=== PATIENT | female | born 1935 | race Caucasian/White ===

== ENCOUNTER → 2016-10-31 | Outpatient (CLI) | payer OTHER, BC ==
[~2016-10-31] VITALS: Ht 157.5 cm; Wt 63.3 kg
[~2016-10-31] MED LIST: BENADRYL25 MG PO; FENTANYL PA50 MCG/HR TRANSDERM; FLAGYL500 MG PO; FLONASE 0.05%50 MCG NASAL; HYDROCHLOROTHIA25 M2 PO; LEVOTHYROXINE 0.1 MG PO; NORCO 10-325 T1 EACH PO; NORFLEX100 MG PO; NORTRIPTYLINE H25 M3 PO; OMEPRAZOLE40 MG PO; PLAVIX 75 MG TA75 MG PO; PREVACID30 MG PO; RETIN-A20 GM TP; TENORMIN25 MG PO; ZPAK PO
--- NOTE | ~2016-10-31 | HPC ---
[facility] [address] [place] [address] PAIN MANAGEMENT CONSULTATION Name: MARLEN ROOT Room #: REG CRISTINA Pierre#: [id number] Admission: 10/31/16 Attend Phys: Lencho Rowan DO Discharge: Date of : 37 Report #: [id number] THIS REPORT FOR: //name// CC: Darryl Rowan The patient is a pleasant 81-year-old female, she was seen about a year and a half ago in March 2015, for myofascial pain. Trigger point injections afforded significant relief, 80-90% for quite some time. She notes only recently pain has begun to recur in the upper mid back and little bit in the left low back. She denies any changes, otherwise. She notes pain is in the back, exacerbated with standing, walking, and bending. Gets some relief with relaxation. She takes Tylenol for pain. PHYSICAL EXAMINATION: Shows a 81-year-old female, BMI and vital signs are noted on the chart, they are within normal limits. Rises from chair with some assistance. Gait is modestly antalgic. She has moderate kyphosis. She does have a history of osteoporosis. She is tender in the thoracic paravertebral muscles bilateral and a little bit in the overlying latissimus dorsi bilateral, significant muscle spasm noted also in the left lower lumbar paravertebral muscles. Upper and lower extremity strength is symmetric. Straight leg raise is negative. ASSESSMENT: Myofascial pain, thoracolumbar spondylosis in the patient with component of osteoporosis and myofascial pain. RECOMMENDATIONS: Discussion with the patient today about therapeutic options. Initially, we will simply repeat trigger point injections that have been significantly helpful a year and a half ago. I will follow her up in 2-3 weeks for reevaluation. If symptoms recur, we can consider repeat trigger point injections and initiation of a selective serotonin and norepinephrine reuptake inhabiting agent (Cymbalta?). Presently; however, we can simply do trigger point injections and keep the patient functional that would probably be in her best interest. PROCEDURE: Trigger point injections times 6. PROCEDURE NOTE: After written informed consent was obtained, the patient was placed in prone position. Trigger points were identified in the bilateral thoracic paravertebral muscles, bilaterally latissimus dorsi and 2 muscle groups in the left low back, left lumbar paravertebral muscle, and inferior latissimus dorsi. The area was cleansed with alcohol. Using a 25-gauge needle, 60 mg of triamcinolone plus 10 mL of 0.5% preservative-free bupivacaine and 5 mL of 1% preservative-free Xylocaine with 1:200,000 epi was distributed equally among the 6 discrete trigger points. Needle was removed, the area was cleansed, Band-Aids [address] [address] PAIN MANAGEMENT CONSULTATION Name: MARLEN ROOT Room #: REG CRISTINA Jay#: [id number] Admission: 10/31/16 Attend Phys: Lencho Rowan DO Discharge: Date of : 37 Report #: [id number]. The patient was monitored for an appropriate period of time, discharged in good and stable condition. <ELECTRONICALLY SIGNED> By: Lencho Rowan DO 11/04/16 0811 1536 2104 Lencho Rowan DO /nt
[2016-10-31 13:48] VITALS: BP 130/80
== END ==
LOC: PAIN 07:08
DX: M47.895 Other spondylosis, thoracolumbar region (principal); M81.0 Age-related osteoporosis without current pathological fracture; M40.209 Unspecified kyphosis, site unspecified; I10 Essential (primary) hypertension

== ENCOUNTER 2021-03-20 14:54 | Inpatient (IN) | payer OTHER, BC ==
[~2021-03-20] VITALS: Ht 157.5 cm; Wt 53.2 kg
[2021-03-20 14:56] VITALS: BP 105/69
[2021-03-20 15:27] LABS: BASOPHILS 0.8 % (0.0-2.0); EOSINOPHILS 1.3 % (0.0-3.0); HEMOGLOBIN 16.6 gm/dL (12.0-15.0); LYMPHOCYTES 19.8 % (24.0-44.0); MCH 34.2 pg (26.0-34.0); MCHC 33.8 g/dL (28.0-37.0); MCV 101.1 fL (80.0-100.0); MONOCYTES 8.9 % (1.0-8.0); PLATELET COUNT 380 thou/uL (150-400); POLYS 69.2 % (36.0-66.0); RBC 4.85 mil/uL (4.20-5.00); RDW 13.4 % (10.5-14.5); WBC 10.1 thou/uL (4.0-11.0)
[2021-03-20 16:10] LABS: ANION GAP 16 mmol/L (7-16); BUN 28 mg/dL (7-18); CALCIUM 10.4 mg/dL (8.5-10.1); CHLORIDE 97 mmol/L (98-107); CO2 24 mmol/L (21-32); CREATININE 1.2 mg/dL (0.6-1.0); DIRECT BILIRUBIN < 0.1 mg/dL (<0.1-0.2); GLUCOSE 131 mg/dL (74-106); LIPASE 68 U/L (73-393); SGOT 30 U/L (15-37); SGPT 35 U/L (14-59); SODIUM 137 mmol/L (136-145); TOTAL BILIRUBIN 0.4 mg/dL (0.2-1.0); TOTAL PROTEIN 7.9 g/dL (6.4-8.2); TROPONIN-I <0.06 ng/mL (<0.06)
[2021-03-20 16:12] LABS: POTASSIUM 2.9 mmol/L (3.5-5.1)
--- NOTE | 2021-03-20 16:40 | NUR ---
ATTEMPTTED TO STRAIGHT CATH PT AT THIS TIME. NO URINE OUTPUT. PT HAS POOR SKIN TURGOR AND HAS BEEN VOMITING FOR THE PAST FEW DAYS. ED PROVIDER NOTIFIED. WILL ATTEMPT AGAIN AFTER MORE FLUIDS.
--- NOTE | 2021-03-20 17:43 | NUR ---
HOSPITALIST AT BEDSIDE AT THIS TIME
[2021-03-20 18:39] VITALS: BP 123/67
[2021-03-20 19:48] VITALS: BP 157/84
[2021-03-21 00:08] VITALS: BP 125/78
[2021-03-21] MEDS ORDERED: NEURONTIN100 MG PO (02:54)
[2021-03-21] MEDS ORDERED: TYLENOL ARTHRI650 MG PO (02:58)
[2021-03-21] MEDS ORDERED: PROLIA60 MG/1 ML SUBQ (03:06)
[2021-03-21] MEDS ORDERED: TORSEMIDE10 MG PO (03:20)
[2021-03-21] MEDS ORDERED: TRAMADOL 50 MG50 MG PO (03:24)
[2021-03-21 03:53] VITALS: BP 102/61
--- NOTE | 2021-03-21 04:39 | NUR ---
PT ADMITTED TO ROOM 201 FROM ER WITH SON AT BEDSIDE, C/O BACK PAIN RECEIVED ORDER FOR NORCO PT STATED MUCH RELIEF AND SHE WAS ABLE TO RELAX, VSS, k+ & MG+ REPLACED, FLUIDS INFUSING, EXTERNAL CATHETER PLACED AFTER PT WAS INCON'T, PT REFUSED LAB THIS AM AND STATED SHE JUST WANTED TO BE LEFT ALONE TO SLEEP AND AGREED LAB COULD COME BACK LATER, REPOSITIONED SELF IN BED, WILL CON'T TO MONITOR PER PPOC.
[2021-03-21 07:15] VITALS: BP 120/74
[2021-03-21 09:24] LABS: HEMATOCRIT 40.8 % (37.0-47.0); MCH 34.8 pg (26.0-34.0); MCHC 34.5 g/dL (28.0-37.0); MCV 100.9 fL (80.0-100.0); RBC 4.04 mil/uL (4.20-5.00); WBC 5.7 thou/uL (4.0-11.0)
[2021-03-21 09:27] LABS: HEMOGLOBIN 14.1 gm/dL (12.0-15.0)
[2021-03-21 09:39] LABS: ALBUMIN 3.2 g/dL (3.4-5.0); CALCIUM 9.4 mg/dL (8.5-10.1); CREATININE 0.8 mg/dL (0.6-1.0); DIRECT BILIRUBIN 0.1 mg/dL (<0.1-0.2); TOTAL BILIRUBIN 0.5 mg/dL (0.2-1.0); TOTAL PROTEIN 6.4 g/dL (6.4-8.2)
[2021-03-21 09:44] LABS: POTASSIUM 4.2 mmol/L (3.5-5.1)
[2021-03-21 10:06] LABS: FOLIC ACID 15.8 ng/mL (8.6-58.9)
--- NOTE | 2021-03-21 11:36 | EKG ---
[address] [place] [address] ELECTROCARDIOGRAM REPORT Name: MARLEN ROOT Room #: 201-P ADM IN M.R.#: [id number] Admission: 03/20/21 Attend Phys: Beck Nguyen MD Discharge: Date of : 37 Report #: [id number] [facility] ED Test Date: 2021-03-20 Test Time: 15:19:53 Pat Name: MARLEN ROOT Department: Room: 201 Gender: F Station Baggage Porter: MARICHUY : 1935 Requested By: Tor Baig Order Number: [id number] MD: Flavio Matthew Measurements Intervals [place] Rate: 94 P: 25 NE: 172 QRS: -58 QRSD: 132 T: 92 QT: 369 QTc: 462 Interpretive Statements Sinus rhythm Right bundle branch block LVH with IVCD and secondary repol abnrm Compared to ECG 06/24/2015 10:27:33 Intraventricular conduction delay now present Early repolarization now present Left-axis deviation no longer present Electronically Signed On 03-21-2021 11:36:06 CDT by Flavio Matthew [email or web address] <ELECTRONICALLY SIGNED> By: Flavio Matthew MD 03/21/21 1136 1519 1519 Flavio Matthew MD /EPI
[2021-03-21 15:30] VITALS: BP 126/62
--- NOTE | 2021-03-21 15:31 | NUR ---
PT ALERT AND ORIENTED TIMES FOUR. VSS. IVF INFUSING PER ORDER. SR ON TELE. PT C/O BACK PAIN PRN PAIN MEDICATIONS GIVEN WITH GOOD RELEIF. PT TOLERATES CLEAR LIQUID DIET AND MEDS. PT SON AT BEDSIDE. WILL CONTINUE TO MONITOR.
[2021-03-21 19:56] VITALS: BP 124/72
[2021-03-21 20:24] LABS: HEMATOCRIT 38.3 % (37.0-47.0); HEMOGLOBIN 13.1 gm/dL (12.0-15.0)
[2021-03-22 04:11] LABS: ABSOLUTE NEUTROPHILS 3.4 thou/uL (1.4-8.2); BASOPHILS 0.6 % (0.0-2.0); EOSINOPHILS 3.4 % (0.0-3.0); HEMATOCRIT 39.4 % (37.0-47.0); HEMOGLOBIN 13.4 gm/dL (12.0-15.0); LYMPHOCYTES 30.7 % (24.0-44.0); MCH 34.5 pg (26.0-34.0); MCHC 34.1 g/dL (28.0-37.0); PLATELET COUNT 248 thou/uL (150-400); POLYS 56.3 % (36.0-66.0); RDW 13.3 % (10.5-14.5)
[2021-03-22 04:16] LABS: ALBUMIN 2.9 g/dL (3.4-5.0); CALCIUM 9.1 mg/dL (8.5-10.1); CREATININE 0.6 mg/dL (0.6-1.0); MAGNESIUM 1.4 mg/dL (1.8-2.4); PHOSPHORUS 2.3 mg/dL (2.5-4.9); POTASSIUM 3.4 mmol/L (3.5-5.1); TOTAL BILIRUBIN 0.6 mg/dL (0.2-1.0); TOTAL PROTEIN 6.1 g/dL (6.4-8.2)
[2021-03-22 04:44] VITALS: BP 158/91
[2021-03-22 07:10] VITALS: BP 133/78
[2021-03-22 15:50] VITALS: BP 116/77
--- NOTE | 2021-03-22 16:42 | NUR ---
ASSESSMENT CHARTED - MEDS PER NOV - NO CO'S OF NAUSEA - RAYMOND FULL LIQUID DIET POST EGD THIS AFTERNOON. GIVEN HYDROCODONE X 1 FOR CO'S OF BACK PAIN WITH GOOD RELIEF. PT AMBULATING WITH THE USE OF A WALKER AND GAIT BELT SLOW TO START BUT DOES WELL ONCE MOVING. SON INTO SEE PATIENT TODAY - NO CO'S AT THE PRESENT TIME.
[2021-03-22 19:46] VITALS: BP 107/62
[2021-03-23 04:00] VITALS: BP 106/65
--- NOTE | 2021-03-23 05:49 | NUR ---
PT RESTING QUIETLY IN ROOM THRU THE NOC, ASSESSMENT CHARTED, PAIN MED GIVEN FOR C/O BACK PAIN, VSS, UP WITH GB,WALKER, AND ASSIST X1, WILL CON'T TO MONITOR PER PPOC.
[2021-03-23 06:11] LABS: ABSOLUTE NEUTROPHILS 3.6 thou/uL (1.4-8.2); BASOPHILS 0.6 % (0.0-2.0); EOSINOPHILS 3.6 % (0.0-3.0); HEMATOCRIT 42.6 % (37.0-47.0); HEMOGLOBIN 14.4 gm/dL (12.0-15.0); LYMPHOCYTES 23.4 % (24.0-44.0); MCH 34.5 pg (26.0-34.0); MCHC 33.8 g/dL (28.0-37.0); MCV 102.1 fL (80.0-100.0); MONOCYTES 10.6 % (1.0-8.0); PLATELET COUNT 233 thou/uL (150-400); POLYS 61.8 % (36.0-66.0); RBC 4.17 mil/uL (4.20-5.00); RDW 13.5 % (10.5-14.5); WBC 5.8 thou/uL (4.0-11.0)
[2021-03-23 06:35] LABS: CALCIUM 9.3 mg/dL (8.5-10.1); CREATININE 0.6 mg/dL (0.6-1.0); MAGNESIUM 1.6 mg/dL (1.8-2.4)
[2021-03-23 09:16] VITALS: BP 137/70
[2021-03-23 12:21] VITALS: BP 94/54
--- NOTE | 2021-03-23 13:26 | NUR ---
Assessment completed w/ pt and son at bedside Pt A&Ox4 NOK/DPOA: Son Param(Angus) [phone] Insurance: [place] & [place] PCP: Darryl Espinal MD Lives alone in [facility]. Living quarters on 1 lvl w/ elevator if needed and no additonal steps to enter building or apt home. ADLs: Independent - facility preps meals DME: [employer] No prior Hx w/ HH/SNF/LTACH/REHAB/HOSPICE/DIALYSIS Pt's family provides additional support at home Pt may need assistance w/ transportation upon D/C as family will be out of town from -Mon this week. SW discussed HH reccomendation. Pt and family are agreeable to HH w/ therapy and nursing assistance. Pt's son Angus inquired about HH 3-5 times a week. SHANIA educated pt and Angus of length of time and scheduling is based on pt need and agency staffing. SW to send referral on this day to Jose. D/ plan: Home w/ HH
[2021-03-23 14:46] VITALS: BP 94/54
--- NOTE | 2021-03-23 14:47 | NUR ---
Per Jose Liasmithon, pt has been accepted for services upon D/C
[2021-03-23 16:17] VITALS: BP 96/52
--- NOTE | 2021-03-23 17:00 | NUR ---
ASSESSMENT CHARTED - MEDS PER NOV - GIVEN HYDROCODONE FOR CO'S OF BACK PAIN WITH MOD RELIEF. RAYMOND DIET AND FLUIDS NO CO'S OF NAUSEA. PT NOW ON REG DIET - EATING WELL AND REQUESTED SNACK THIS AFTERNOON. UP WITH THE USE OF WALKER AND GAIT BELT - WORKED WITH PHYS THERAPY TODAY AND OCC THERAPY. NO CO'S AT THE PRESENT TIME. APPEARS TO BE RESTING COMFORTABLY.
[2021-03-23 20:24] VITALS: BP 89/50
--- NOTE | 2021-03-24 03:26 | NUR ---
ASSESSMENTS CHARTED, MEDS CHARTED GIVEN. PATIENT RESTING IN BED DURING SHIFT. C/O PAIN IN LOWER BACK. PER CT, NO LUMBAR FRACTURES, AN AGE INDETERMINENT T12 FRACTURE EVIDENT. PATIENT RECEIVING NORCO FOR PAIN GIVEN. SINUS STEPHANIE, SINUS RHYTHM WITH BBB ON TELEMETRY, ON ROOM AIR, LUNGS ARE CLEAR. PATIENT IS UP WITH GAIT BELT AND ROLLER WALKER TO THE BATHROOM. FALL PRECAUTIONS IN PLACE DURING SHIFT.
[2021-03-24 06:00] VITALS: BP 92/43
[2021-03-24 08:16] VITALS: BP 116/73
--- NOTE | 2021-03-24 08:33 | NUR ---
PT IS AXOX4, YUHAAVIATAM. TRANSFERS WITH WALKER AND GAIT BELT. TAKEN DOWN TO MRI THIS AM. FORM FILLED OUT AND IN CHART.
--- NOTE | 2021-03-24 15:10 | NUR ---
Patient to discharge home with care. Jose rhoades met with patient and son at bedside. Liason rec orders. Patient needs transport home. Arrnaged van via [facility] for [phone]. Verified adress, updated son and patient.
[2021-03-24 16:08] VITALS: BP 94/54
--- NOTE | 2021-03-24 17:03 | NUR ---
RECEIVED THE PATIENT ON BED, CONSCIOUS AND ORIENTED.ON ROOM AIR BREATHING SPONTANEOUSLY.NOT IN DISTRESS.DISCHARGE PACKET GIVEN AND EVERYTHING WAS EXPLAINED TO THE PATIENT'S SON.DISCHARGED PATIENT ON STABLE CONDTION.
--- NOTE | 2021-03-24 17:07 | PATH ---
[facility] [address] [address] PATHOLOGY RPT PROCEDURE Name: IVETTMARLEN Room #: 201-P [facility] IN M.R.#: [id number] Admission: 03/20/21 Date of : 37 Discharge: Report #: [id number] Path Case #: [id number] LCA Accession Number: [id number] . 01 Material submitted: . stomach - BIOPSY ANTRUM . 01 Clinical history: . DEHYDRATION, N/V, WEAKNESS, HYPOKALEMIA EGD . 02 Diagnosis: Gastric mucosa, antrum to rule out H. pylori, endoscopic biopsy: - Moderate reactive gastropathy. - Congested vessels within lamina propria underneath the surface epithelium. - Negative for intestinal metaplasia or atrophy. - Negative for Helicobacter pylori (properly controlled immunohistochemical stain performed). (IUV:cheyanne; 03/24/2021) MBR 03/24/2021 1259 Local . 02 Electronically signed: . Elis Najera MD, Pathologist NPI- [id number] . 01 Gross description: . The specimen is received in formalin, labeled "Marlen Root, biopsy antrum". Received are two segments of pale aviles tissue measuring 0.4 and 0.5 cm in maximum dimensions. The specimen is submitted entirely in cassette A1. (CAA; 03/23/2021) QAC/QAC 03/23/2021 1632 Local . 02 Pathologist provided ICD-10: K31.9 . 02 CPT . 887170, N65770 Specimen Comment: A courtesy copy of this report has been sent to [phone] Specimen Comment: [phone], Specimen Comment: Report sent to ,DR JOHN / DR IZAGUIRRE Performed at: [address] [id number] MD Jonah Flowers MD Phone: [phone] Performed at: [address] [address] PATHOLOGY RPT PROCEDURE Name: MARLEN ROOT Room #: 201-P [facility] IN M.R.#: [id number] Admission: 03/20/21 Date of : 37 Discharge: Report #: [id number] Path Case #: [id number] [address] [id number] MD Elis Najera MD Phone: [phone]
== END 2021-03-24 16:45 | disposition home health service (06) | DRG 380 ==
LOC: ER 14:54 → 2N 18:02 → EROBS 18:02 → 2N 19:37
PROVIDERS: Internal Medicine; Nurse Practitioner; ADMIT Hospitalist; ATTEND Hospitalist
PROC: 0DB78ZX Excision of Stomach, Pylorus, Via Natural or Artificial Opening Endoscopic, Diagnostic (ICD-10-PCS; principal; 2021-03-22)
DX: K22.10 Ulcer of esophagus without bleeding (principal); N17.0 Acute kidney failure with tubular necrosis; M48.54XA Collapsed vertebra, not elsewhere classified, thoracic region, initial encounter for fracture; K56.1 Intussusception; E86.0 Dehydration; K29.70 Gastritis, unspecified, without bleeding; K92.0 Hematemesis; E87.6 Hypokalemia; E03.9 Hypothyroidism, unspecified; G62.9 Polyneuropathy, unspecified; K44.9 Diaphragmatic hernia without obstruction or gangrene; R53.81 Other malaise; K21.9 Gastro-esophageal reflux disease without esophagitis; E83.42 Hypomagnesemia; E83.39 Other disorders of phosphorus metabolism; M81.0 Age-related osteoporosis without current pathological fracture; D53.9 Nutritional anemia, unspecified; Z90.710 Acquired absence of both cervix and uterus; Z98.49 Cataract extraction status, unspecified eye; Z86.73 Personal history of transient ischemic attack (TIA), and cerebral infarction without residual deficits; Z88.1 Allergy status to other antibiotic agents; Z88.8 Allergy status to other drugs, medicaments and biological substances; Z90.49 Acquired absence of other specified parts of digestive tract; Z90.3 Acquired absence of stomach [part of]; Z80.0 Family history of malignant neoplasm of digestive organs
CPT/HCPCS: 10081; 10797; 62110; 62900; 70005

== ENCOUNTER → 2021-03-31 | Outpatient (CLI) | payer OTHER, BC ==
[~2021-03-31] VITALS: Ht 157.5 cm; Wt 47.6 kg
[~2021-03-31] MED LIST changes: +HYDROCODONE-AP1 EA11 PO; +NEURONTIN100 MG PO; +PROLIA60 MG/1 ML SUBQ; +TORSEMIDE10 MG PO; +TRAMADOL 50 MG50 MG PO; +TYLENOL ARTHRI650 MG PO
[2021-03-31 10:49] VITALS: BP 146/67
--- NOTE | 2021-03-31 11:07 | NUR ---
Pain Clinic Assessment: 1. History of Osteoarthritis: SPINE History of Rheumatoid Arthritis: Not Applicable 2. Height: 5 ft. 2 in. 157.5 cm. Weight: 105.0 lb. oz. 47.628 kg. Patient's BMI: 19.2 3. Vital Signs: BP: 146/67 Pulse: 67 Resp: 14 Temp: 02 Sat: 100 ECG Mon: 4. Pain Intensity: 8 5. Fall Risk: Dizziness: N Needs help standing or walking: Y Fallen in the last 3 months: N Fall risk comments: 6. Patient on Blood Thinner: None 7. History of Hypertension: N 8. Opioid Therapy greater than 6 weeks: Y Opiate Contract Signed: 9. Risk Assessment Tool Provided: LOW 10. Functional Assessment Tool: 11. Recreational Drug Use: Never Drug Type: Tobacco Use: Never Smoker Tobacco Type: Amount or Packs/day: How Many Years: Alcohol Use: No Frequency: Quant:
== END ==
LOC: PAIN
PROVIDERS: ATTEND Anesthesiology Pain Medicine
DX: M48.54XA Collapsed vertebra, not elsewhere classified, thoracic region, initial encounter for fracture (principal); Z79.899 Other long term (current) drug therapy; Z79.891 Long term (current) use of opiate analgesic; Z88.1 Allergy status to other antibiotic agents; Z88.6 Allergy status to analgesic agent; Z88.8 Allergy status to other drugs, medicaments and biological substances

== ENCOUNTER 2021-04-22 14:55 | Emergency (ER) | payer OTHER, BC ==
[~2021-04-22] VITALS: Ht 157.5 cm; Wt 56.7 kg
[~2021-04-22 14:55] MED LIST changes: +PERCOCET 5-3251 EACH PO
[2021-04-22] MEDS ORDERED: PERCOCET 5-3251 EACH PO (18:37)
[2021-04-22 19:20] VITALS: BP 140/94
[2021-04-28] MEDS ORDERED: PERCOCET 5-3251 EACH PO (09:52)
[2021-04-28] MEDS ORDERED: OXYCONTIN10 M1 PO ×2 (09:52→09:58)
[2021-04-28] MEDS ORDERED: XTAMPZA ER9 MG PO (12:49)
== END 2021-04-22 19:24 | disposition home or self-care (01) ==
LOC: ER 14:55
DX: S32.020A Wedge compression fracture of second lumbar vertebra, initial encounter for closed fracture (principal); S22.080A Wedge compression fracture of T11-T12 vertebra, initial encounter for closed fracture; Z90.49 Acquired absence of other specified parts of digestive tract; Z79.899 Other long term (current) drug therapy; Z88.1 Allergy status to other antibiotic agents; Z88.0 Allergy status to penicillin; W19.XXXA Unspecified fall, initial encounter; Y93.89 Activity, other specified; Y92.89 Other specified places as the place of occurrence of the external cause; Y99.8 Other external cause status

== ENCOUNTER → 2021-04-28 | Outpatient (CLI) | payer OTHER, BC ==
[~2021-04-28] VITALS: Ht 157.5 cm; Wt 49.9 kg
[~2021-04-28] MED LIST changes: +OXYCONTIN10 M1 PO; +XTAMPZA ER9 MG PO
[2021-04-28 09:09] VITALS: BP 104/69
--- NOTE | 2021-04-28 09:28 | NUR ---
Pain Clinic Assessment: 1. History of Osteoarthritis: SPINE History of Rheumatoid Arthritis: Not Applicable 2. Height: 5 ft. 2 in. 157.5 cm. Weight: 110.0 lb. oz. 49.896 kg. Patient's BMI: 20.1 3. Vital Signs: BP: 104/69 Pulse: 75 Resp: 14 Temp: 02 Sat: 98 ECG Mon: 4. Pain Intensity: 10 5. Fall Risk: Dizziness: N Needs help standing or walking: Y Fallen in the last 3 months: Y Fall risk comments: 6. Patient on Blood Thinner: None 7. History of Hypertension: N 8. Opioid Therapy greater than 6 weeks: Y Opiate Contract Signed: 9. Risk Assessment Tool Provided: LOW-0 10. Functional Assessment Tool: 11. Recreational Drug Use: Never Drug Type: Tobacco Use: Never Smoker Tobacco Type: Amount or Packs/day: How Many Years: Alcohol Use: No Frequency: Quant:
== END ==
LOC: PAIN 06:53
PROVIDERS: ATTEND Anesthesiology Pain Medicine
DX: R07.89 Other chest pain (principal); I10 Essential (primary) hypertension; M19.011 Primary osteoarthritis, right shoulder; M19.012 Primary osteoarthritis, left shoulder; M47.814 Spondylosis without myelopathy or radiculopathy, thoracic region; I49.9 Cardiac arrhythmia, unspecified; E78.00 Pure hypercholesterolemia, unspecified; R73.9 Hyperglycemia, unspecified; F10.10 Alcohol abuse, uncomplicated; Z79.899 Other long term (current) drug therapy

== ENCOUNTER 2021-05-13 15:20 | Inpatient (IN) | payer OTHER, BC ==
[~2021-05-13] VITALS: Ht 157.5 cm; Wt 44.9 kg
--- NOTE | ~2021-05-13 | EMS ---
[facility] [address] [email or web address] [address] EMS Patient Care Report Name: MARLEN ROOT Room #: REG KADE Jay#: [id number] Admission: 05/13/21 Attend Phys: Discharge: Date of : 37 Report #: [id number] THIS REPORT FOR: //name// Report Transmitted: 05/13/2021 16:07 EMS Care Summary [facility] MED-ACT Incident [id number] @ 05/13/2021 14:26 Incident Location [address] [place] [address] Patient MARLEN ROOT Female, 86 Years 1935 Patient Address [address] [place] [address] Patient History Dementia,Hypertension (HTN),Hypothyroidism,Back Pain (Chronic), Patient Allergies No known allergies, Patient Medications Atenolol, Gabapentin, Torsemide, Oxycodone, Levothyroxine, Chief Complaint Low back pain Disposition Transported No Lights/[place] Reason Falls Transported To [facility] Narrative Patient reports that she was sitting on the lid of her toilet seat trying to put her slippers on when she slid off the toilet onto the floor landing on her [facility] [address] [email or web address] [address] EMS Patient Care Report Name: MARLEN ROOT Room #: NEREIDA Jay#: [id number] Admission: 05/13/21 Attend Phys: Discharge: Date of : 37 Report #: [id number] left side. Patient c/o left hip pain and low back pain. Patient stated she has therapy for chronic low back pain but her pain has increased since sliding off of the toilet this afternoon. Patient denied hitting her head and denied LOC. Patient denied headache/head pain, dizziness, vision changes, neck pain and numbness/tingling to her extremities, chest pain/pressure/discomfort, difficulty breathing, and nausea/vomiting. Patient stated she pressed her medical alert button immediately. E32 reports that they were initially dispatched for a "Lift Assist" but called for a MICU when they found the patient with pain in her back and left hip. Patient initially rated her pain 10/10 but stated her back pain had decreased to 4/10 after receiving 75mcg Fentanyl IVP. Patient stated her left hip pain had resolved once she was lying in a supine position on the stretcher. Patient's [id number] requested ambulance transport to [facility] ER for evaluation. Found this 86 y/o female patient lying on her left side on the floor in the bathroom of her apartment being attended to by E32. Patient was a/o x 2. GCS 14 (normal for patient per family). Patient's respiration were regular and non labored. Patient's skin was warm, dry and had good color. Patient's radial pulse was strong and regular. No visible signs of trauma noted to the patient's head. No crepitus, deformities or tenderness were palpated to the patient's head or neck. NATALIE. No slurred speech or facial droop noted. No obvious deformities or crepitus were palpated to the patient's back. Noted grimace on patient's face when she tried to move herself. M1143 encouraged the patient to try not to move herself. Due to position of the patient, M1143 as initially unable to determine presence of shortening or rotation of the patient's left leg. A 20 ga IV saline lock was established in the patient's right thumb/wrist. Patient was given an initial dose of 50 mcg Fentanyl IVP for pain management. After several minutes and when the patient appeared to be more relaxed, the patient was moved from the floor via scoop stretcher and placed in a supine position on the stretcher. Scoop stretcher was removed. No obvious shortening or rotation noted to the patient's left leg and patient indicated that she was no longer having any pain or discomfort in her left leg. Patient was secured with seat belts and moved to the MICU. Sinus Rhythm on the monitor. Monitored the patient's vitals and ECG. Patient reports that her back pain had decreased to 6/10. Patient was given 25mcg of Fentanyl IVP for continued pain management. Upon arrival at [facility] ER, the patient rated her low back pain a 3 or 4/10. Upon arrival at [facility] ER, the patient was taken to ER #10 and moved via draw sheet to the ER bed by Arsenio and ER staff. Report and paperwork TOT TEJA Bell, at the patient's bedside. Initial Vitals @PTAP: 68,R: 18,BP: 90/54,Pain: 10/10,GCS: 14,SpO2: 96,Revised Trauma: 12, @15:15P: 63,R: 18,BP: 92/62,Pain: 6/10,GCS: 14,SpO2: 98,Revised Trauma: 12, @15:07P: 66,R: 18,BP: 97/60,Pain: 6/10,GCS: 14,SpO2: 98,Revised Trauma: 12, [facility] [address] [place] [address] EMS Patient Care Report Name: MARLEN ROOT Room #: NEREIDA Jay#: [id number] Admission: 05/13/21 Attend Phys: Discharge: Date of : 37 Report #: [id number] @15:08P: 65,R: 18,Pain: 6/10,GCS: 14,SpO2: 99,[place] Suspected: false @14:45P: 72,R: 18,Pain: 10/10,GCS: 14,Temp: 98.9F,SpO2: 97, Impression Injury of Lower Back Procedures @PTASaline Lock 0cc (20 ga) Site: Hand-LeftResponse: UnchangedFailed@15:16Fentanyl - 25 Micrograms (mcg) - Intravenous (IV)Response: Improved@15:00Fentanyl - 50 Micrograms (mcg) - Intravenous (IV)Response: Improved@14:56Saline Lock 10cc (20 ga) Site: Hand-RightResponse: ImprovedSucceeded@14:50Saline Lock 0cc (20 ga) Site: Forearm-LeftResponse: UnchangedFailed@PTASurgical Mask on PatientResponse: Unchanged@14:45ALS AssessmentResponse: ImprovedSucceeded 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,Saline Lock 0cc 20 ga Site: Hand-Left,Response: UnchangedFailed, GAS METER REPAIR SUPERVISOR,Surgical Mask on Patient,Response: Unchanged GAS METER REPAIR SUPERVISOR,BP: 90/54 M,PULSE: 68,RR: 18 R,SPO2: 96 Ox,ETCO2: ,BG: ,PAIN: 10,GCS: 14, 14:17,Call Received 14:17,Psap Call 14:26,Dispatched 14:26,En Route 14:39,On Scene 14:43,At Patient 14:45,ALS Assessment,Response: ImprovedSucceeded, 14:45,BP: / M,PULSE: 72,RR: 18 R,SPO2: 97 Ox,ETCO2: ,BG: ,PAIN: 10,GCS: 14, 14:50,Saline Lock 0cc 20 ga Site: Forearm-Left,Response: UnchangedFailed, 14:56,Saline Lock 10cc 20 ga Site: Hand-Right,Response: ImprovedSucceeded, 15:00,Fentanyl - 50 Micrograms (mcg) - Intravenous (IV),Response: Improved 15:07,BP: 97/60 M,PULSE: 66,RR: 18 R,SPO2: 98 Ox,ETCO2: ,BG: ,PAIN: 6,GCS: 14, 15:08,BP: / M,PULSE: 65,RR: 18 R,SPO2: 99 Ox,ETCO2: ,BG: ,PAIN: 6,GCS: 14, 15:08,Depart Scene 15:15,BP: 92/62 M,PULSE: 63,RR: 18 R,SPO2: 98 Ox,ETCO2: ,BG: ,PAIN: 6,GCS: 14, 15:16,Fentanyl - 25 Micrograms (mcg) - Intravenous (IV),Response: Improved 15:18,At Destination 15:36,Call Closed Disclaimer v1.1 Copyright 2020 [employer] This EMS Care Summary contains data elements from the applicable legal record (which may be displayed differently). It is designed to provide pertinent information for the following purposes: continuity of care, clinical quality, and state data reporting. The complete legal record is available to ED staff and administrators of the receiving hospital in [employer]'s Patient Tracker. All data [address] [address] EMS Patient Care Report Name: MARLEN ROOT Room #: REG M.R.#: [id number] Admission: 05/13/21 Attend Phys: Discharge: Date of : 37 Report #: [id number] is provided "as is."
[2021-05-13 15:21] VITALS: BP 93/56
[2021-05-13 17:01] LABS: BASOPHILS 0.6 % (0.0-2.0); EOSINOPHILS 3.4 % (0.0-3.0); HEMATOCRIT 38.1 % (37.0-47.0); LYMPHOCYTES 14.6 % (24.0-44.0); MCH 34.5 pg (26.0-34.0); MCV 101.5 fL (80.0-100.0); PLATELET COUNT 287 thou/uL (150-400); POLYS 71.4 % (36.0-66.0); RBC 3.76 mil/uL (4.20-5.00); RDW 13.6 % (10.5-14.5); WBC 8.4 thou/uL (4.0-11.0)
[2021-05-13 17:13] LABS: ALBUMIN 2.9 g/dL (3.4-5.0); CREATININE 1.2 mg/dL (0.6-1.0); TOTAL BILIRUBIN 0.5 mg/dL (0.2-1.0); TOTAL PROTEIN 6.3 g/dL (6.4-8.2)
[2021-05-13 17:15] LABS: POTASSIUM 2.9 mmol/L (3.5-5.1)
[2021-05-13 17:31] LABS: URINE BILIRUBIN 1+ (Negative); URINE BLOOD NEGATIVE (Negative); URINE CLARITY CLEAR; URINE COLOR YELLOW; URINE GLUCOSE-RANDOM* NEGATIVE (Negative); URINE KETONES TRACE (Negative); URINE LEUKOCYTES-REFLEX NEGATIVE (Negative); URINE NITRITE-REFLEX NEGATIVE (Negative); URINE PROTEIN (DIPSTICK) NEGATIVE (Negative); URINE SPECIFIC GRAVITY 1.015 (1.005-1.035)
[2021-05-13 17:43] LABS: ICTOTEST (BILI CONFIRMATORY) Negative (Negative)
[2021-05-13] MEDS ORDERED: TRAMADOL 50 MG50 MG PO (19:19)
[2021-05-13 22:55] VITALS: BP 99/52
[2021-05-13 23:48] VITALS: BP 102/63
--- NOTE | 2021-05-14 01:09 | NUR ---
PT ARRIVED ON THE UNIT AT 2300. PT IS ALERT AND OREINTED X4. PT CANNOT TOLERATE THE HOB UP DUE TO INJURY. PT IS PLEASANT AND COOPERATIVE. PT WAS ORIENTED TO THE ROOM AND EDUCATED ON THE USE OF THE CALL LIGHT OF WHICH PT VERBALIZED UNDERSTANDING. VS AND BG ARE WITHIN THE NORMAL RANGE. PT TOLERATING RA. PT DID NOT EXPRESSS ANY CONCERNS AND NO VISIBLE SIGN OF DISTRESS WAS NOTED. FALL PRECAUTIONS IN PLACE WITH CALL LIGHT WITHIN REACH. WILL CONTINUE TO MONITOR.
[2021-05-14 02:33] LABS: CALCIUM 8.4 mg/dL (8.5-10.1); CREATININE 0.8 mg/dL (0.6-1.0); POTASSIUM 3.7 mmol/L (3.5-5.1)
[2021-05-14 09:04] VITALS: BP 135/57
--- NOTE | 2021-05-14 09:36 | EKG ---
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
[2021-05-14 10:51] LABS: APTT 34.8 Seconds (24.5-32.8); INR 1.02; PROTIME 11.1 Seconds (10.5-12.1)
--- NOTE | 2021-05-14 15:04 | NUR ---
PT ADMITTED RELATED TO COMPRESSION FX AND HYPOKALEMIA. CM REVIEWED CHART AND SPOKE WITH CARE TEAM. CM MET WITH PT AND SON DOUGLAS AT BEDSIDE THIS DAY. PT WAS ALERT TO SELF ONLY. SON PROVIDED ASSESSMENT ANSWERS. PT INDICATED PT HAD BEEN LIVING AT [facility]. [facility] AND HAD ASSISTANCE 3 HRS A DAY FROM BENEFITS OF HOME. 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 SON INDICATED THAT PT HAD BEEN HOSPITALIZED WITH [facility]IONS [facility] THREE TIMES IN LAST TWO MONTHS. HE STATED THAT HAD BEEN SKILLED AT [facility]. SON HAD JUST MADE DEPOSIT TO MOVE PT INTO [facility] AT [address] PRIOR TO THIS LAST FALL. MRI WAS ATTEMPTED THIS AM BUT PT DIDN'T TOLERATE IT. IR TO REATTEMPT WITH SEDATION FOR ASSESSMENT FOR POSSIBLE KYPHO/VETERBREALPLASTY. PT'S SON IS AWARE AND AGREEABLE. HE WOULD BE INTERESTED IN PT GOING TO [facility]. CM FAXED REFERRAL. CM FOLLOWING REGARDING DC PLANNING.
[2021-05-14 16:44] VITALS: BP 123/59
--- NOTE | 2021-05-14 20:00 | NUR ---
Assumed pt care this am, confused and combative. MRI planned but was not successful since pt is not able to stay still and conbative. Pt was sent back to the floor. Son at the bedside aware of the situation, plan is to do MRi with sedation then IR. Pain is managed with medications. Pulled her IV 2 times, IV team placed one on the left UA. Endorsed to the night nurse.
[2021-05-14 20:04] VITALS: BP 145/79
--- NOTE | 2021-05-15 06:22 | NUR ---
Pt. has rested very little this shift. She is alert with confusion. Pt. c/o back pain and has been medicated for pain (see emar) with some relief noted. Pt. did pull her iv out and a new iv had to be restarted. Incontinent of urine and ravindra care given. Bed alarm is on.
[2021-05-15 07:27] VITALS: BP 123/62
[2021-05-15 15:55] VITALS: BP 132/71
[2021-05-15 19:34] VITALS: BP 128/67
--- NOTE | 2021-05-15 19:53 | NUR ---
Assumed pt care this am, pt is calmer and cooperative today. Slept for most of the morning. Pain is managed with medications, partial relief is noted. Incontinent, bed bath anmd change done. Diet and medications are well tolerated. POC followed. Awaiting MRI, CT and IR for back problems. Endorsed to the night nurse.
--- NOTE | 2021-05-16 05:31 | NUR ---
Pt. rested quietly at intervals during the night when checked on during frequent rounds. C/o some back discomfort and po tylenol given (see emar) with some relief noted. She has attempted to get out of the bed without ask- ing for assistance and bed alarm has triggered. Currently resting quietly in the bed with bed alarm on.
[2021-05-16 16:09] VITALS: BP 144/80
[2021-05-16 18:45] VITALS: BP 127/81
--- NOTE | 2021-05-16 19:38 | NUR ---
ASSUMED CARE OF PATIENT AT SHIFT CHANGE. ASSESSMENT CHARTED. MEDICATIONS ADMINISTERED PER EMAR. VSS. PATIENT IS A&OX2 AND INCONTINENT. PATIENT NOT IMPULSIVE THIS SHIFT AND VERY PLEASANT. ON BEDREST; FREQUENT TURNING AND CHECKING FOR INCONTINENCE DONE THIS SHIFT EVERY 2 HRS AND NEEDED. TOLERATING PO DIET WELL W NO ISSUES. MRI TO BE DONE 05/17. SCREENING FORM COMPLETE AND FAXED TO RADIOLOGY DEPT. KYPHOPLASY TO BE SCHEDULED AFTER MRI PER PROVIDER NOTES. ENDORSED TO ONCOMING NURSE
--- NOTE | 2021-05-16 19:40 | NUR ---
I agree with Libia LPNs assessment.
--- NOTE | 2021-05-17 06:35 | NUR ---
PT C/O PAIN TO HER BACK,MANAGED WITH MED.PT INCONT OF B&B.PT REPOSITIONED WHILE IN BED.PT TO HAVE MRI TODAY,PER REPORT, MRI SCREENING PAPER COMPLEETD AND FAXED.PT CONT ON IVF.CALL LIGHT WITHIN REACH.
[2021-05-17 07:45] VITALS: BP 148/67
--- NOTE | 2021-05-17 12:58 | NUR ---
Assumed pt care this am, vs stable. ams is better today, able to recognize family and names. Diet and medications are well tolerated, scheduled for MRI and possible kypho today.
--- NOTE | 2021-05-17 13:41 | NUR ---
PT GOING TO MRI WITH MEDS ON BOARD THIS AFTERNOON AROUND 1330. CM HAD FAXED CLINICAL INFO TO [facility] MONDAY OF LAST WEEK. CM FOLLOWING REGARDING DC PLANNING.
--- NOTE | 2021-05-17 15:05 | HC ---
[facility] [place] [address] CONSULTATION Name: MARLEN ROOT Room #: [facility]- ADM IN M.R.#: [id number] Admission: 05/13/21 Attend Phys: Elliot Saxena MD Discharge: Date of : 39 Report #: [id number] THIS REPORT FOR: cc: Darryl Espinal II, MD, II,Darryl Cruz,Igor Cohen MD ~ DATE OF SERVICE: 05/14/2021 HISTORY OF PRESENT ILLNESS: The patient is an 86-year-old white female who had a fall in the bathroom, lives in assisted living facility per report, although she tells me she lives in her own apartment. This was noted to be a mechanical fall. She has multiple acute compression fractures noted to be L3 and T10 per interventional radiology. She has other prior compression fractures. She does have a history of osteoporosis. She also was noted to have severe hypokalemia with acute renal insufficiency and her potassium is down to 2.9. It has since been supplemented. Creatinine had bumped from 0.6 up to 1.2. She is now back down to 0.8. She was unable to tolerate a regular MRI and so now the plan is to undergo MRI with sedation as per Interventional Radiology. We are seeing her in rehabilitation medicine consultation. PAST MEDICAL HISTORY: Includes peripheral neuropathy, osteoporosis, prior vertebral compression fractures, protein-calorie malnutrition. ALLERGIES: AMOXICILLIN, CEFACLOR, CLAVULANIC ACID. PAST SURGICAL HISTORY: Appendectomy, hysterectomy, cataracts, TIA, C-sections, perforated gastric ulcers. HABITS: No history of tobacco or alcohol abuse. SOCIAL HISTORY: Lives alone in nursing home apartment, first floor, has a 4-wheeled walker. There is a son that lives in town who works. Apparently he was a rehabilitation nurse in [place], [place]. REVIEW OF SYSTEMS: Complains of a lot of pain with any limited movement of her back. PHYSICAL EXAMINATION: GENERAL: A slender 86-year-old white female, somewhat frail in appearance, is alert, pleasant, latency to her responses, seemed somewhat disoriented, but follows basic commands. VITAL SIGNS: Temp 98, pulse 80, respirations 17, blood pressure 135/57. NEUROLOGIC: She is alert. HEENT: Appeared to be benign. EXTREMITIES: She has functional range of motion of both upper extremities. Strength is a grade 3+ to 4-/5. She is lying on her left side, like to keep [facility] [address] [place] [address] CONSULTATION Name: MARLEN ROOT Room #: 450-P [facility] IN M.R.#: [id number] Admission: 05/13/21 Attend Phys: Elliot Saxena MD Discharge: Date of : 39 Report #: [id number] both her hips and knees flexed. No focal calf swelling. Tone appeared to be intact. She did some limited movement of both lower extremities, complains of increased pain with movement that she locates to her lower back and mid back. ASSESSMENT: An 86-year-old white female with the following problem list: 1. Gait instability with fall. 2. Acute compression fractures, T10 and L3. 3. Severe hypokalemia, now on supplementation. 4. Acute renal insufficiency. 5. Osteoporosis. PLAN: Further evaluation underway as per Interventional Radiology. We will then have therapies work with her. We will need to see how she does as far as her overall functional independence and follow along with you. I am uncertain if she has the tolerance for an acute rehabilitation level of care as she has a lot of pain with limited movement, but we will need to see how she does if she undergoes kyphoplasty or vertebroplasty. We will be glad to follow along with you. <ELECTRONICALLY SIGNED> By: Igor Cruz MD 05/17/21 1505 [id number] [id number] Igor Cruz MD /nt
[2021-05-17 19:44] VITALS: BP 127/79
[2021-05-18] VITALS (7 sets, daily range): BP systolic 125–158; BP diastolic 74–99
--- NOTE | 2021-05-18 01:43 | NUR ---
ASSUMED PT CARE AT 1925. PT IS ALERT AND ORIENTED TO SELF . PT WAS SLEEPING IN THE ROOM WITH DAUGHTER IN THE CHAIR. PT US TOLERATING RA. PAIN MEDS WERE GIVEN FOR BACK PAIN. PT DID NOT VOICE ANY CONCERNS AND NO VISIBLE SIGNS PF DISTRESS WAS NOTED. PT SLEPT FOR THE MOST PART OF THE SHIFT. PT DID NOT HAVE A BM ON THIS SHIFT. PT WAS INCONTINENT DURING THIS SHIFT. FALL PRECAUTIONS IN PLACE WITH CALL LIGHT WITHIN REACH. WILL CONTINUE TO MONITOR.
--- NOTE | 2021-05-18 11:19 | NUR ---
CARE TEAM INDICATING THAT PT IS TO HAVE KYPHOPLASTY THIS DAY AT 11:00. CM FAXED UPDATED CLINICAL TO [facility] FOR REVIEW FOR POSSIBLE ADMISSION.
--- NOTE | 2021-05-18 11:29 | NUR ---
Assumed pt care this am vs stable, maintained npo for kypho this am. POC followed with no signs or verbalizations of distress noted. Daughter at the bedside. Pt is incontinent. Will monitor.
--- NOTE | 2021-05-19 01:37 | NUR ---
ASSUMED PT CARE AT 1905. PT WAS SLEEPING IN BED WITH THE DAUGHTER IN THE ROOM. DAUGHETR IS HAPPY WITH MOTHER'S PROGRESS. VS WERE TAKEN WHICH WERE WITHIN NORMAL RANGE. PT SLEPT FOR MOST PART OF THE SHIFT. MEDS WERE GIVEN PER [facility] ORDERS. PT IS TOLERATING RA. PT IS INCONTENT OF B/B. FALL PRECAUTIONS IN PLACE WITH CALL LIGHT WITHIN REACH. WILL CONTINUE TO MONITOR.
[2021-05-19 07:45] VITALS: BP 110/73
[2021-05-19] MEDS ORDERED: LIDOPATCH1 EACH TRANSDERM (11:28)
--- NOTE | 2021-05-19 11:34 | NUR ---
ASSUMED PT CARE THIS AM. PT A&OX3, REFUSING TO TALK TO THE NURSE, ONLY COMMUNICATING WITH THE FAMILY MEMBER AT BEDSIDE. PATIENT REPORTING PAIN IN HER BACK, LIDOCAINE PATCH PLACED. PATIENT REMAINS INCONTINENT, CHANGING NEEDED. PATIENT TOOK MORNING MEDICATION WITHOUT ISSUE. PATIENT IS ON ROOM AIR. IV PATENT, SALINE LOCKED. FALL PRECAUTIONS ARE IN PLACE, CALL LIGHT WITHIN REACH.
[2021-05-19 15:35] VITALS: BP 108/65
--- NOTE | 2021-05-19 15:45 | NUR ---
PT HAD KYPHO YESTERDAY ON THREE PLACES. BOB INDICATED TO FAMILY AND DOCUMENTED IN A DIFFERENT PLACE THAT PLAN IS FOR PT TO RETURN IN 7-10 DAYS TO HAVE INTERVENTION ON 3 REMAINING FRACTURES. SON INDICATED THAT HE WOULD PREFER FOR PT TO REMAIN HERE BUT CARE TEAM INDICATED THAT NO PT IS DC STABLE THIS DAY. CM REACHED OUT TO [facility] AND THEY HAD A DC CANCLED SO NO BEDS TODAY THEY INDICATED ANTICIPATED BAD TOMORROW. CM NOTIFIED PT'S SON DOUGLAS AT BEDSIDE OF THE ABOVE. HE IS AWARE AND AGREEABLE OF ANTICIPATED DC TO [facility] SKILLED TOMORROW. CM FOLLOWING REGARDING DC PLANNING.
[2021-05-19 20:00] VITALS: BP 119/73
--- NOTE | 2021-05-20 01:10 | NUR ---
ASSUMED PT CARE [id number]. PT IS ALERT AND OREINTED. PT WAS ASLEEP IN BED WITH SON AT [facility]. PT TOOK PO MEDS WITH NO ISSUE. PT SLEPT FOR THE MOST PART OF THE SHIFT. PT TOLERATING RA. VS ARE WITHIN NORMAL RANGE. PT IS IMCONTINENT AND IS NON-COMPLIANT WITH THE USE OF CALL LIGHT. NO VISIBLE SIGN OF DISTRESS NOTED. FALL PRECAUTIONS IN PLACE WITH CALL LIGHT WITHIN REACH. WILL CONTINUE TO MONITOR.
[2021-05-20 08:00] VITALS: BP 120/60
--- NOTE | 2021-05-20 10:59 | NUR ---
Assumed pt care at 7am.Assessment completed.vss.Pt in bed very quiet.C/o lower back pain ,lidocaine patch applied.Am meds given with breakfast and well tolerated.Received report from cm that pt will be dc to [facility] at 1430 today.No further c/o from plt at present.Will continue to monitor.
--- NOTE | 2021-05-20 11:23 | NUR ---
[facility] CAN ACCEPT PT THIS DAY. THEY HAVE ARRANGED STRETCHER [facility] TRANS[facility]RT FOR 1430. CHART COPY MADE. ORDERS FAXED. CM NOTIFIED PT'S SON DOUGLAS AND HE IS AWARE THAT PT WILL HAVE TO QUARENTINE FOR 14 DAYS SHE IS INVACINATED. NO OTHER CM INTERVENTION INDICATED. CASE CLOSED.
== END 2021-05-20 14:44 | DRG 515 ==
LOC: ER 15:20 → EROBS 18:50 → 4W 18:50 → EROBS 20:31 → 4W 22:59
PROVIDERS: Emergency Medicine; Radiology Diagnostic Radiology; ADMIT Hospitalist; ATTEND Hospitalist
PROC: 0PU43JZ Supplement Thoracic Vertebra with Synthetic Substitute, Percutaneous Approach (ICD-10-PCS; principal; 2021-05-18)
PROC: 0PS43ZZ Reposition Thoracic Vertebra, Percutaneous Approach (ICD-10-PCS; principal; 2021-05-18)
DX: S22.079A Unspecified fracture of T9-T10 vertebra, initial encounter for closed fracture (principal); E43 Unspecified severe protein-calorie malnutrition; G93.41 Metabolic encephalopathy; N17.9 Acute kidney failure, unspecified; Z68.1 Body mass index [BMI] 19.9 or less, adult; S22.089A Unspecified fracture of T11-T12 vertebra, initial encounter for closed fracture; Z20.822 Contact with and (suspected) exposure to COVID-19; E87.6 Hypokalemia; R53.81 Other malaise; D53.9 Nutritional anemia, unspecified; K59.00 Constipation, unspecified; R41.0 Disorientation, unspecified; Z66 Do not resuscitate; G62.9 Polyneuropathy, unspecified; M81.0 Age-related osteoporosis without current pathological fracture; R26.89 Other abnormalities of gait and mobility; Z90.49 Acquired absence of other specified parts of digestive tract; Z88.6 Allergy status to analgesic agent; Z88.1 Allergy status to other antibiotic agents; Z88.8 Allergy status to other drugs, medicaments and biological substances; Z90.710 Acquired absence of both cervix and uterus; Z98.49 Cataract extraction status, unspecified eye; Z86.73 Personal history of transient ischemic attack (TIA), and cerebral infarction without residual deficits; W18.39XA Other fall on same level, initial encounter; Y93.89 Activity, other specified; Y92.098 Other place in other non-institutional residence as the place of occurrence of the external cause; Y99.8 Other external cause status
CPT/HCPCS: 10040

== ENCOUNTER → 2021-06-01 | Outpatient (CLI) | payer OTHER, BC ==
[~2021-06-01] VITALS: Ht 157.5 cm; Wt 45.4 kg
[~2021-06-01] MED LIST changes: +ATENOLOL 25 MG25 M1 PO; -LEVOTHYROXINE 0.1 MG PO; +LIDOPATCH1 EACH TRANSDERM; +SYNTHROID100 MC1 PO
[2021-06-01 10:44] VITALS: BP 117/82
[2021-06-01 10:57] LABS: HEMATOCRIT 42.2 % (37.0-47.0); MCH 33.5 pg (26.0-34.0); MCHC 33.2 g/dL (28.0-37.0); MCV 100.8 fL (80.0-100.0); RBC 4.19 mil/uL (4.20-5.00); RDW 13.6 % (10.5-14.5); WBC 4.8 thou/uL (4.0-11.0)
[2021-06-01 15:17] VITALS: BP 111/78
== END | disposition home or self-care (01) ==
LOC: CATH 07:42
PROVIDERS: ATTEND Nuclear Medicine Nuclear Cardiology
DX: M80.08XA Age-related osteoporosis with current pathological fracture, vertebra(e), initial encounter for fracture (principal); M54.9 Dorsalgia, unspecified; K21.9 Gastro-esophageal reflux disease without esophagitis; Z98.890 Other specified postprocedural states; Z79.899 Other long term (current) drug therapy; Z86.73 Personal history of transient ischemic attack (TIA), and cerebral infarction without residual deficits; Z90.49 Acquired absence of other specified parts of digestive tract; Z88.8 Allergy status to other drugs, medicaments and biological substances